=== PATIENT | male | born 1960 | race Caucasian/White ===

== ENCOUNTER 2021-02-23 17:18 | Emergency (ER) | payer OTHER ==
[~2021-02-23] VITALS: Ht 177.8 cm; Wt 94.9 kg
[2021-02-23 18:07] LABS: MICROSCOPIC INDICATED
[2021-02-23 18:31] LABS: BASOPHILS % (AUTO) 1 % (0-1); EOSINOPHILS % (AUTO) 0 % (1-7); LYMPHOCYTES % (AUTO) 22 % (22-44); MEAN CORPUSCULAR HEMOGLOBIN 31.3 pg (27.5-34.5); MEAN CORPUSCULAR HGB CONC 34.8 g/dL (33.2-36.2); MEAN PLATELET VOLUME 7.4 fL (7.4-10.4); MONOCYTES % (AUTO) 10 % (2-9); NEUTROPHILS % (AUTO) 68 % (42-75); PLATELET COUNT 191 x10^3/uL (130-400); RED CELL DISTRIBUTION WIDTH 13.1 % (9.4-14.8)
[2021-02-23 18:44] LABS: CHLORIDE 103 mmol/L (98-107)
[2021-02-23 18:52] LABS: ALANINE AMINOTRANSFERASE 24 U/L (12-78); ALBUMIN 3.8 g/dL (3.4-5.0); ALKALINE PHOSPHATASE 61 U/L (45-117); ANION GAP 10 mmol/L (5-15); BILIRUBIN,TOTAL 0.8 mg/dL (0.2-1.0); CALCIUM 9.1 mg/dL (8.5-10.1); CREATININE 1.73 mg/dL (0.7-1.3); TOTAL PROTEIN 8.7 g/dL (6.4-8.2)
--- NOTE | 2021-02-23 20:29 | NUR ---
TO ROOM FROM LOBBY. NAD.
[2021-02-23 20:31] VITALS: BP 148/79
--- NOTE | 2021-02-23 20:32 | NUR ---
PT AMBULATED BACK TO ROOM. PT HAS RIGHT FLANK PAIN X SEVERAL DAYS. WORSE THEN IN THE PAST. PT HAS HX OF KIDNEY STONES. PT DENIES DYSURIA OR HEMATURIA. VSS. PT PLACED ON PULSE OX AND BP MONITORING. PT HAS NO NEEDS AT NTHIS TIME. CALL LIGHT IN REACH
--- NOTE | 2021-02-23 20:37 | NUR ---
REPORT TO MONIQUE KING. PT GOING TO CT
--- NOTE | 2021-02-23 21:17 | NUR ---
CHART UP FOR RECHECK BY ERP. PT. DENIES NEEDS. FAMILY AT BS.
--- NOTE | 2021-02-23 21:38 | NUR ---
PT. STATES MONTANEZ HAD STARTED TO DISCUSS POC FOR D/C. AWATING D/C PAPERS.
== END 2021-02-23 22:18 | disposition home or self-care (01) ==
LOC: ED 21:38
DX: N13.2 Hydronephrosis with renal and ureteral calculous obstruction (principal); K59.00 Constipation, unspecified
CPT/HCPCS: 36415; 74018; 74176; 76770; 80053; 81001; 85025; 99285